=== PATIENT | female | born 1985 | race Caucasian/White ===

== ENCOUNTER → 2019-05-19 | Outpatient (CLI) | payer OTHER ==
[2019-05-19 10:10] LABS: African American GFR (CKD) >90 (>60 ml/min/1.73 sqM); Blood Urea Nitrogen 9 mg/dL (7-17)
[2019-05-19 11:24] LABS: Total Volume 24 Hour,Urine 1275 mls (800-1800)
[2019-05-19 11:51] LABS: Creatinine Clearance Urine 113 ml/min (70-135)
[2019-05-19 12:16] LABS: Total Protein 24 Hour,Urine 179 mg/24hr (42.0-225.0)
== END | disposition home or self-care (01) ==
LOC: LABWHC1 09:32
PROVIDERS: ATTEND Obstetrics & Gynecology
DX: O13.9 Gestational [pregnancy-induced] hypertension without significant proteinuria, unspecified trimester (principal)
CPT/HCPCS: 36415; 81050; 82565; 82575; 84156; 84520

== ENCOUNTER → 2021-02-07 | Outpatient (CLI) | payer OTHER ==
--- NOTE | 2021-02-07 09:35 | P.PAINCN ---
History of Present Illness - Reason for Consult Consult date: 02/07/21 - History of Present Illness This is a 35 years old female with a chronic history of severe headaches started more than 11 years ago, she denies any initiating event and she reported that the headache intensity to a with the quality of life, and occasional exacerbation of the headache, the headache associated with neck pain, she denies any aura, she denies any visual changes, and the symptoms radiate from the base of the skull, to the top of the head, she tried acupuncture, medication therapy, heat therapy, not any significant improvement, and she is currently on Topamax and Neurontin, with minimal benefit, she denies any motor or sensory deficit she denies any fever or night sweats Past Medical History Past Medical History: Asthma Additional Past Medical History / Comment(s): received both covid vaccines,uses inhaler when exercise induced asthma History of Any Multi-Drug Resistant Organisms: None Reported Past Surgical History: Section Additional Past Surgical History / Comment(s): c section x2 Past Anesthesia/Blood Transfusion Reactions: No Reported Reaction Smoking Status: Never smoker Past Alcohol Use History: Occasional Past Drug Use History: None Reported - Past Family History Mother Family Medical History: No Reported History Medications and Allergies Home Medications Medication Instructions Recorded Confirmed Type Cetirizine HCl [Zyrtec] 10 mg PO DAILY 02/04/21 02/04/21 History Enskyce Control 1 tab PO HS 02/04/21 02/04/21 History Fluticasone Nasal [place] [Flonase 2 spr EA NOSTRIL DAILY 02/04/21 02/04/21 History Nasal [place]] Gabapentin [Neurontin] 100 mg PO DAILY 02/04/21 02/04/21 History Rizatriptan Benzoate [Rizatriptan] 10 mg PO DAILY PRN 02/04/21 02/04/21 History Topiramate [Topamax] 100 mg PO BID 02/04/21 02/04/21 History Venlafaxine HCl [Effexor XR] 75 mg PO BID 02/04/21 02/04/21 History Allergies Allergy/AdvReac Type Severity Reaction Status Date / Time sulfamethoxazole Allergy Itching Verified 02/04/21 15:42 [From Bactrim] trimethoprim [From Bactrim] Allergy Itching Verified 02/04/21 15:42 Physical Exam Vitals: Vital Signs Temp Pulse Resp BP Pulse Ox 02/07/21 09:13 97.8 F 81 18 127/89 100 Physical Examinations : -Constitutiona : Cooperative , not in acute distress . -HEENT : nech : supple , no Lymphadenopathy , normal thyroid size . : eyes : no ptosis , no icterus, no photophobia . - neurologic : Cranial nerve II to XII intact , no focal neurological deffecit . -psychatric : alert , oriented X 3 , appropriate affect , intact judgment and insight . -Lymphatic : no Lymphadenopathy . - musculoskeltal : Cervical Spine motor stregnth in the deltoid and biceps, normal right side , normal Left side motor stregnth biceps and the wrist extensors normal right side ,normal left side . motor stregnth in the triceps muscle . normal Right side , normal Left side deep tendon reflexes normal at the biceps , normal at Brachioradialis , normal at triceps. cervical facet loading test: Positive Bilaterally Spurling test= negative bilaterally. Neck distraction test= negative bilaterally. Soha sign= negative bilaterally. Severe tenderness over the occipital nerves bilaterally Lumber spine moter stegnth lower extremities ,thigh and legs 5/5 Right side , 5/5 Left side Results Comments: MRI of the brain = reviewed Assessment and Plan Plan: Assessment and plan=1-bilateral occipital nerve neuralgia. 2-cervicogenic headache. 3-cervical spondylosis, cervical facet arthropathy without myelopathy. Patient could benefit from bilateral occipital nerve block , procedure risk and benefits and alternatives discussed with the patient and she agreed to the procedure, if she continues to have severe headache after the occipital nerve block then would consider doing medial branch block and third occipital nerve block , and possible RFA Time with Patient: Greater than 30 PQRS Measure Charge Sheet Measure #130: Documentation of Current Meds in Medical Chart: Patient's medications documented in chart Measure #226: Tobacco Use: Screen & Cessation Intervention: Pt not a tobacco user Measure #111: Pneumonia Vaccination: Pneumococcal vaccine NOT administered or previously given Measure #47: Advance Care Plan: Advance care planning discussed & documented, pt chose/unable to give Measure #412: Opioid Treatment Agreement: No documentation of signed opioid treatment agreement Measure #408: Opioid Therapy Follow-up Evaluation: Patient had NO f/u eval minimum every 3 months during opioid therapy Measure #317: Preventitive Care & Scrn High Bld Press & F/U: Normal blood pressure, f/u not required Measure #128: Body Mass Index (BMI) Screening & Follow-up: BMI documented within normal parameters Measure #131: Pain Assessment & Follow-up: Pain positive & plan documented, Follow-up scheduled Measure #431: Unhealthy Alcohol Use Preventative Care & Scrn: Patient not identified as an unhealthy alcohol user PQRS Narrative: Blood Pressure 127/89 Pain Intensity [Occipital] 8 Scale Used Numeric (1 - 10) Hx Alcohol Use (MH) Yes Home Medications: Ambulatory Orders Cetirizine HCl [Zyrtec] 10 mg PO DAILY 02/04/21 Enskyce Control 1 tab PO HS 02/04/21 Fluticasone Nasal [place] [Flonase Nasal [place]] 2 spr EA NOSTRIL DAILY 02/04/21 Gabapentin [Neurontin] 100 mg PO DAILY 02/04/21 Rizatriptan Benzoate [Rizatriptan] 10 mg PO DAILY PRN 02/04/21 Topiramate [Topamax] 100 mg PO BID 02/04/21 Venlafaxine HCl [Effexor XR] 75 mg PO BID 02/04/21
== END ==
CPT/HCPCS: 99211

== ENCOUNTER → 2021-03-02 | Outpatient (CLI) | payer OTHER ==
[2021-03-02 11:08] VITALS: BP 140/97; PULSE 71; RESP 16; TEMP 97.5
--- NOTE | 2021-03-02 11:19 | P.PAINPG ---
Subjective Progress Note Date: 03/02/21 - History of Present Illness This is a 35 years old female with a chronic history of severe headaches started more than 11 years ago, she denies any initiating event and she reported that the headache intensity to a with the quality of life, and occasional exacerbation of the headache, the headache associated with neck pain, she denies any aura, she denies any visual changes, and the symptoms radiate from the base of the skull, to the top of the head, she tried acupuncture, medication therapy, heat therapy, not any significant improvement, and she is currently on Topamax and Neurontin, with minimal benefit, she denies any motor or sensory deficit she denies any fever or night sweats. our plan last visit was to schedule for bilateral occipital nerve block, however she did not have this done yet. here for follow up today. Unfortunately her insurance denied occipital nerve blocks. Still located in the base of the neck with radiation into the vertex as well as the shoulders. Pain is described as dull and aching and worse with flexion and section of the cervical spine. DR Duque believes that her pain may be mediated from her cervical spine and ordered a cervical MRI, she has not gotten this yet. Physical Examinations : -Constitutiona : Cooperative , not in acute distress . -HEENT : nech : supple , no Lymphadenopathy , normal thyroid size . : eyes : no ptosis , no icterus, no photophobia . - neurologic : Cranial nerve II to XII intact , no focal neurological deffecit . -psychatric : alert , oriented X 3 , appropriate affect , intact judgment and insight . -Lymphatic : no Lymphadenopathy . - musculoskeltal : Cervical Spine motor stregnth in the deltoid and biceps, normal right side , normal Left side motor stregnth biceps and the wrist extensors normal right side ,normal left side . motor stregnth in the triceps muscle . normal Right side , normal Left side deep tendon reflexes normal at the biceps , normal at Brachioradialis , normal at triceps. cervical facet loading test: Positive Bilaterally Spurling test= negative bilaterally. Neck distraction test= negative bilaterally. Soha sign= negative bilaterally. Severe tenderness over the occipital nerves bilaterally Lumber spine moter stegnth lower extremities ,thigh and legs 5/5 Right side , 5/5 Left side Results Comments: MRI of the brain = reviewed Assessment and Plan Plan: Assessment and plan=1-bilateral occipital nerve neuralgia. 2-cervicogenic headache. 3-cervical spondylosis, cervical facet arthropathy without myelopathy. I do feel that her pain may be mediated from her cervical spine. Dr. Duque recently gave her a cervical MRI prescription which she has yet to get. She will get the cervical MRI, call back, and we will schedule medial branch blocks based on the results of this. Likely TON C3 C4, but I'd like to see her imaging prior to any injections. I explained the entire chronology of the procedure including the 2 medial branch blocks and possible radiofrequency ablation if she gets good relief and increase in functionality from the medial branch blocks. I have spent 31 minutes on patient care today. The time was used to review the medical records including relevant urine studies and prescription history, review of the available imaging, evaluation and examination of the patient, coordination of care with medical staff and if applicable referring physicians, as well as creation of the medical record. PQRS Measure Charge Sheet Measure #130: Documentation of Current Meds in Medical Chart: Patient's medications documented in chart Measure #226: Tobacco Use: Screen & Cessation Intervention: Pt not a tobacco user Measure #111: Pneumonia Vaccination: Pneumococcal vaccine NOT administered or previously given Measure #47: Advance Care Plan: Advance care planning discussed & documented, pt chose/unable to give Measure #412: Opioid Treatment Agreement: No documentation of signed opioid treatment agreement Measure #408: Opioid Therapy Follow-up Evaluation: Patient had NO f/u eval mini mum every 3 months during opioid therapy Measure #317: Preventitive Care & Scrn High Bld Press & F/U: Normal blood pressure, f/u not required Measure #128: Body Mass Index (BMI) Screening & Follow-up: BMI documented within normal parameters Measure #131: Pain Assessment & Follow-up: Pain positive & plan documented, Follow-up scheduled Measure #431: Unhealthy Alcohol Use Preventative Care & Scrn: Patient not identified as an unhealthy alcohol user PQRS Narrative: Objective - Vital Signs Vital signs: Intake & Output 02/28/21 03/01/21 03/01/21 18:59 06:59 18:59 Weight 61.235 kg PQRS Measure Charge Sheet PQRS Narrative: Pain Intensity [Head] 2 Hx Alcohol Use (MH) Yes: RARE Home Medications: Ambulatory Orders Cetirizine HCl [Zyrtec] 10 mg PO DAILY 02/04/21 Enskyce Control 1 tab PO HS 02/04/21 Fluticasone Nasal [place] [Flonase Nasal [place]] 2 spr EA NOSTRIL DAILY 02/04/21 Gabapentin [Neurontin] 100 mg PO HS 02/04/21 Rizatriptan Benzoate [Rizatriptan] 10 mg PO DAILY PRN 02/04/21 Topiramate [Topamax] 100 mg PO BID 02/04/21 Venlafaxine HCl [Effexor XR] 75 mg PO BID 02/04/21 Controlled Substance Measures - Controlled Substance Measures Is patient prescribed a controlled substance at discharge?: No
== END ==
LOC: PNWHC3 10:55
PROVIDERS: ATTEND Anesthesiology
DX: M54.81 Occipital neuralgia (principal); G44.89 Other headache syndrome; M47.812 Spondylosis without myelopathy or radiculopathy, cervical region
CPT/HCPCS: 99211

== ENCOUNTER → 2021-05-09 | Outpatient (CLI) | payer OTHER ==
[2021-05-09 12:36] VITALS: BP 143/93; PULSE 83; RESP 16; TEMP 98.4
--- NOTE | 2021-05-09 12:50 | P.PN ---
Subjective Progress Note Date: 05/09/21 This is Follow up visit for this 35 years old female with a chronic history of severe headaches started more than 11 years ago, she denies any initiating event and she reported that the headache intensity to a with the quality of life, and occasional exacerbation of the headache, the headache associated with neck pain, she denies any aura, she denies any visual changes, and the symptoms radiate from the base of the skull, to the top of the head, she tried acupuncture, medication therapy, heat therapy, not any significant improvement, and she is currently on Topamax and Neurontin, with minimal benefit, she denies any motor or sensory deficit she denies any fever or night sweats, specifically order MRI of the cervical spine which was rejected by her insurance, patient will be starting physical therapy tomorrow, patient also giving guidance instruction about doing instructed home exercise, patient already tried multiple medications to treat her headache Topamax 100 mg twice a day and Neurontin 100 mg daily at bedtime, Verapamil 40 mg daily at bedtime, she reported that the current medication is not helping enough she continued to have severe neck pain and headache . Objective - Vital Signs Vital signs: Vital Signs Temp 98.4 F 05/09/21 12:33 Pulse 83 05/09/21 12:33 Resp 16 05/09/21 12:33 BP 143/93 05/09/21 12:33 Pulse Ox 100 05/09/21 12:33 - Exam Physical Examinations : -Constitutiona : Cooperative , not in acute distress . -HEENT : nech : supple , no Lymphadenopathy , normal thyroid size . : eyes : no ptosis , no icterus, no photophobia . - neurologic : Cranial nerve II to XII intact , no focal neurological deffecit . -psychatric : alert , oriented X 3 , appropriate affect , intact judgment and insight . -Lymphatic : no Lymphadenopathy . - musculoskeltal : Cervical Spine motor stregnth in the deltoid and biceps, normal right side , normal Left side motor stregnth biceps and the wrist extensors normal right side ,normal left side . motor stregnth in the triceps muscle . normal Right side , normal Left side deep tendon reflexes normal at the biceps , normal at Brachioradialis , normal at triceps. cervical facet loading test: Positive Bilaterally Spurling test= negative bilaterally. Neck distraction test= negative bilaterally. Soha sign= negative bilaterally. Severe tenderness over the occipital nerves bilaterally Lumber spine moter stegnth lower extremities ,thigh and legs 5/5 Right side , 5/5 Left side Results MRI of the brain = reviewed Assessment and Plan Plan: Assessment and plan= 1-bilateral occipital nerve neuralgia. 2-cervicogenic headache. 3-cervical spondylosis, cervical facet arthropathy without myelopathy. The future we can schedule patient to have diagnostic medial branch block cervical area Bilat C2,C3 , third occipital nerve Time with Patient: Less than 30
== END ==
LOC: PNWHC3 12:17
PROVIDERS: ATTEND Specialist
DX: M54.81 Occipital neuralgia (principal); M47.812 Spondylosis without myelopathy or radiculopathy, cervical region; Z88.2 Allergy status to sulfonamides
CPT/HCPCS: 99211

== ENCOUNTER → 2021-07-27 | Outpatient (CLI) | payer OTHER ==
[2021-07-27 14:21] VITALS: BP 127/91; PULSE 82; RESP 18; TEMP 98.4
--- NOTE | 2021-07-27 15:07 | P.PAINPG ---
Subjective Progress Note Date: 07/27/21 Principal diagnosis: neck pain Ms. Santana is a 35-year-old pleasant female came to the [facility] pain clinic for follow-up visit. Patient has ongoing pain for many years. Patient describes pain is aching, throbbing, constant type of pain. Pain is not radiating. Patient rated pain levels are 8-9 out of 10 in severity. With the help of medications pain levels are 6-7out of 10 in severity. Activities making pain worse. Medications, resting , helping in relieving patient's pain. Patient pain some days better than others. Overall activities decreased secondary to pain. Because of the pain sometimes patient is feeling lack of sleep, interest, and energy. Denied any bowel or bladder problems at this time. Patient denied any suicidal ideas/homicidal ideas at this time. Patient denied any red flag symptoms related to pain. Objective - Vital Signs Vital signs: Vital Signs Temp 98.4 F 07/27/21 14:17 Pulse 82 07/27/21 14:17 Resp 18 07/27/21 14:17 BP 127/91 07/27/21 14:17 Pulse Ox 100 07/27/21 14:17 Intake & Output 07/26/21 07/27/21 07/27/21 18:59 06:59 18:59 Weight 64.41 kg - Exam General: Well-developed, well-nourished, no acute distress HEENT: Normocephalic, and atraumatic Neck: Supple, no neck swelling Psychiatric: Appropriate mood, and affect YARD OPERATOR: No focal neurological deficits Musculoskeletal: Upper extremity: Normal strength, and range of motion. Sensation grossly intact Lower extremity: Normal strength, and range of motion Cervical spine: Paravertebral tenderness: Positive Cervical spine facet hemalatha: Positive Cervical spine Spurling test: negative Assessment and Plan Assessment: cervical spondylosis without myelopathy Myofascial pain syndrome Plan: #1 Opioid, and psychological risk tools, and scores were reviewed. Diagnoses, prognosis, and multiple treatment options including but not limited to physical therapy, interventional therapy, adjunct medication therapy, narcotic me dication, and surgical options were discussed with the patient. And all questions were answered to the patient's satisfaction. #2 treatment plan agreement : Patient was thoroughly discussed regarding the treatment options, alternatives, and importance of exercises as tolerated. Patient clearly understood. #3 Patient was counseled on importance of regular exercise. Including rupa chi, aerobic exercises as tolerated. Which helps for chronic pain, and overall well- being. Patient also counseled regarding importance of weight control rolling chronic pain, and overall other health issues. By altering diet habits, minimizing sugar intake, and processed foods helps in minimizing Inflammation. Also discussed with the patient regarding intermittent fasting. Patient counseled regarding smoking associated with chronic pain, worsening inflammation, and smoking effects on liver, and medication metabolism. And encouraged to stop smoking. #4 investigations: MAPS- reviewed , urine drug test-not done #5 diagnostic tests:none #6 consultation : none # 7 interventional procedures: bilateral cervical C4-C5, and C5-C6 medial branch block 1. Procedure, complications, alternatives discussed with the patient. #8 medications #1 magnesium oxide 400 mg by mouth daily Medication side effects, complications, long-term consequences discussed with the patient. Patient recommended to contact the pain clinic if noticed any issues with given medications. #9 morphine milligrams equivalents dose ( MME) per day: 0 # 10 TENS unit's, and percussion massage device #11 disposition: scheduled to follow up with pain clinic i-n 4.-8 weeks duration. PQRS Measure Charge Sheet Measure #130: Documentation of Current Meds in Medical Chart: Patient's medications documented in chart Measure #226: Tobacco Use: Screen & Cessation Intervention: Pt not a tobacco user Measure #111: Pneumonia Vaccination: Pneumococcal vaccine NOT administered or previously given Measure #47: Advance Care Plan: Advance care planning discussed & documented, pt chose/unable to give Measure #412: Opioid Treatment Agreement: No documentation of signed opioid treatment agreement Measure #408: Opioid Therapy Follow-up Evaluation: Patient had NO f/u eval minimum every 3 months during opioid therapy Measure #317: Preventitive Care & Scrn High Bld Press & F/U: Normal blood pressure, f/u not required Measure #128: Body Mass Index (BMI) Screening & Follow-up: BMI documented within normal parameters Measure #131: Pain Assessment & Follow-up: Pain positive & plan documented Measure #431: Unhealthy Alcohol Use Preventative Care & Scrn: Patient not identified as an unhealthy alcohol user Mode of Arrival: Ambulatory - Pain Location Head Non-Pharmacological Interventions: Home Exercise, Physical Therapy, Position /Reposition, Stretching Pharmacological Interventions: Medication PQRS Narrative: Blood Pressure 127/91 Pain Intensity [Head] 5 Scale Used Numeric (1 - 10) Hx Alcohol Use (MH) Yes: RARE Home Medications: Ambulatory Orders Cetirizine HCl [Zyrtec] 10 mg PO DAILY 02/04/21 Enskyce Control 1 tab PO HS 02/04/21 Fluticasone Nasal [place] [Flonase Nasal [place]] 2 spr EA NOSTRIL DAILY 02/04/21 Gabapentin [Neurontin] 100 mg PO HS 02/04/21 Rizatriptan Benzoate [Rizatriptan] 10 mg PO DAILY PRN 02/04/21 Topiramate [Topamax] 100 mg PO BID 02/04/21 Venlafaxine HCl [Effexor XR] 75 mg PO BID 02/04/21 Multivitamins, Thera [Multivitamin (formulary)] 1 tab PO DAILY 05/06/21 Controlled Substance Measures - Controlled Substance Measures Is patient prescribed a controlled substance at discharge?: No
== END ==
LOC: PNWHC3 14:06
DX: M47.812 Spondylosis without myelopathy or radiculopathy, cervical region (principal); M79.18 Myalgia, other site; Z88.2 Allergy status to sulfonamides
CPT/HCPCS: 99211

== ENCOUNTER 2021-09-09 08:30 | Day surgery (SDC) | payer OTHER ==
[2021-09-07 15:52] VITALS: BMI 22.8
[~2021-09-09 08:30] MED LIST: LACTATED RINGERS 1,000 ML IV SCH
[2021-09-09 08:56] VITALS: TEMP 98
[2021-09-09] MEDS ORDERED: LIDOCAINE 1% (10MG/ML) FOR IV START INTRADERMA ONE (09:00)
[2021-09-09] MEDS ORDERED: ROPIVACAINE 5MG/ML 20ML VIAL ONE (09:20)
[2021-09-09] MEDS ORDERED: fentaNYL (PF) 50 MCG/ML 2 ML AMP ONE (09:20)
[2021-09-09] MEDS ORDERED: methylPREDNISolone ACETATE 40 MG/ML 1 ML VIAL ONE (09:20)
[2021-09-09] MEDS ORDERED: MIDAZOLAM 2 MG/2 ML VIAL ONE (09:20)
--- NOTE | 2021-09-09 09:43 | P.PCN ---
Date of Procedure: 09/09/21 Procedure(s) Performed: PREOPERATIVE DIAGNOSIS:1- Cervical Spondylosis with Facet Arthropathy.without myelopathy. 2-cervicogenic headache. 3-occipital neuralgia POSTOPERATIVE DIAGNOSIS: Same as preop diagnosis. PROCEDURES: Diagnostic bilateral C2 , C3, medial branch blocks, with fluo roscopic guidance (fluoroscopy images available in radiology department ) Diagnostic bilateral third occipital nerve block under fluoroscopy guidance ANESTHESIA: Monitored anesthesia care as per anesthesia department EBL: Minimal PROCEDURE INDICATION: The patient with neck pain and headache secondary to cervical arthropathy, and occipital neuralgia unresponsive to more conservative treatments. PROCEDURE DESCRIPTION / TECHNIQUE: The patient was seen and identified in the preoperative area. Risks, benefits, complications, and alternatives were discussed with the patient, the patient agreed to proceed with the procedure and signed the consent. IV was started. Vital signs remained stable throughout the procedure. Patient was taken to the OR and time out was completed. The patient was placed in the prone position on the procedure table. A pillow was placed under the patients chest to increase the cervical interlaminar space. The cervical area was prepped and draped in the usual sterile fashion. Critical pause was taken. Vital signs were closely monitored during the procedure. Conscious sedation was used during the procedure to decrease patients anxiety. Using cross-table lateral fluoroscopy, the centroid of the trapezoid of right C2 ,C3,was identified, marked, and localized with 1% lidocaine 1 ml at each level for skin and Sub Q infiltrations . Subsequently, a 25 G 2spinal needle was advanced guided by fluoroscopy to the centroid of the trapezoid of Right C2 , C3, [place] tip position was confirmed at the centroid of the trapezoids of Right C2 , C3 with anteroposterior fluoroscopy. Patient to do the right-sided third occipital nerve block and another needle was placed at the center of the facet joint between the C2 and C3 vertebral, needle placements confirmed with AP and lateral view, Subsequently, 1.5 ml of preservative-free Ropivacaine 0.5% mixed with Depo-Medrol 20 mg and half ml of the mixture was injected after negative aspiration for blood and CSF. [place] was then removed intact the same procedure was repeated at the left C2 , C3 , and the left third occipital nerve levels. COMPLICATIONS: No acute complications. DISPOSITION / PLANS: The patient was placed in a supine position and transferred to the recovery area in a stable condition for observation and was discharged from the recovery room after meeting discharge criteria. Home discharge instructions given to the patient by the staff. The patient was reexamined prior to discharge. The patient will schedule a follow up in the clinic in 2-4 weeks.
[2021-09-09] MEDS ORDERED: IV FLUID CONTINUATION 1,000 ML IV ONE (09:44)
[2021-09-09 10:00] VITALS: BP 123/85; PULSE 83; RESP 16
--- NOTE | 2021-09-09 10:21 | FL ---
EXAMINATION TYPE: FL guided pain mgmt statistic DATE OF EXAM: 09/09/2021 FLUOROSCOPY Fluoroscopy time of 20 seconds was used during needle placement for cervical spine pain intervention procedure. 4 image/s document/s the procedure.
== END 2021-09-09 10:20 | disposition home or self-care (01) ==
LOC: ORPAIN 08:30
PROVIDERS: ATTEND Specialist
DX: M47.812 Spondylosis without myelopathy or radiculopathy, cervical region (principal); M54.81 Occipital neuralgia
CPT/HCPCS: 64490; 64491; 81025; J2250; J1030; J3010; J2795

== ENCOUNTER → 2021-10-24 | Outpatient (CLI) | payer OTHER ==
--- NOTE | 2021-10-24 14:04 | P.PN ---
Subjective Progress Note Date: 10/24/21 This is Follow up visit for this 36 years old female with a chronic history of severe neck pain and headaches , recently we did diagnostic medial branch block cervical area at C2 , C3 , bilateral third occipital nerve block , he got excellent pain relief for a few weeks , and she is complaining of return of her symptoms , changes severe neck pain associated with severe headache ,and she report that the headache intensity to a with the quality of life, and occasional exacerbation of the headache, she denies any aura, and the symptoms radiate from the base of the skull, to the top of the head, she tried acupuncture, medication therapy, heat therapy, not any significant improvement, and she is currently on Topamax and Neurontin, with minimal benefit, she denies any motor or sensory deficit she denies any fever or night sweats, specifically order MRI of the cervical spine which was rejected by her insurance, patient will be starting physical therapy tomorrow, patient also giving guidance instruction about doing instructed home exercise, patient already tried multiple medications to treat he r headache Topamax 100 mg twice a day and Neurontin 100 mg daily at bedtime, Verapamil 40 mg daily at bedtime, she reported that the current medication is not helping enough she continued to have severe neck pain and headache . Physical Examinations : -Constitutiona : Cooperative , not in acute distress . -HEENT : nech : supple , no Lymphadenopathy , normal thyroid size . : eyes : no ptosis , no icterus, no photophobia . - neurologic : Cranial nerve II to XII intact , no focal neurological deffecit . -psychatric : alert , oriented X 3 , appropriate affect , intact judgment and insight . -Lymphatic : no Lymphadenopathy . - musculoskeltal : Cervical Spine motor stregnth in the deltoid and biceps, normal right side , normal Left side motor stregnth biceps and the wrist extensors normal right side ,normal left side . motor stregnth in the triceps muscle . normal Right side , normal Left side deep tendon reflexes normal at the biceps , normal at Brachioradialis , normal at triceps. cervical facet loading test: Positive Bilaterally Spurling test= negative bilaterally. Neck distraction test= negative bilaterally. Soha sign= negative bilaterally. Severe tenderness over the occipital nerves bilaterally Lumber spine moter stegnth lower extremities ,thigh and legs 5/5 Right side , 5/5 Left side Results MRI of the brain = reviewed Assessment and plan= 1-bilateral occipital nerve neuralgia. 2-cervicogenic headache. 3-cervical spondylosis, cervical facet arthropathy without myelopathy. She had excellent pain relief after diagnostic medial branch block cervical area Bilat C2,C3 , third occipital nerve x1 she will be good candidate to have repeat bilateral medial branch block cervical area at C2, C3, and bilateral third occipital nerve block Future Will consider RFA of the levels mentioned above Time with Patient: Less than 30
[2021-10-24 14:21] VITALS: BP 134/89; PULSE 91; RESP 18; TEMP 97.8
== END ==
LOC: PNWHC3 13:38
PROVIDERS: ATTEND Specialist
DX: M54.81 Occipital neuralgia (principal); G44.86 Cervicogenic headache; M47.812 Spondylosis without myelopathy or radiculopathy, cervical region; Z88.2 Allergy status to sulfonamides
CPT/HCPCS: 99211

== ENCOUNTER 2021-12-23 08:09 | Day surgery (SDC) | payer OTHER ==
[2021-12-22 09:46] VITALS: BMI 23.3
[~2021-12-23 08:09] MED LIST changes: +LIDOCAINE 1% (10MG/ML) FOR IV START INTRADERMA PRN
[2021-12-23 08:38] VITALS: TEMP 97.3
[2021-12-23] MEDS ORDERED: ROPIVACAINE 5MG/ML 20ML VIAL ONE (08:53)
[2021-12-23] MEDS ORDERED: fentaNYL (PF) 50 MCG/ML 2 ML AMP ONE (08:53)
[2021-12-23] MEDS ORDERED: MIDAZOLAM 2 MG/2 ML VIAL ONE (08:53)
[2021-12-23] MEDS ORDERED: methylPREDNISolone ACETATE 40 MG/ML 1 ML VIAL ONE (08:53)
--- NOTE | 2021-12-23 09:15 | P.PCN ---
Date of Procedure: 12/23/21 Procedure(s) Performed: PREOPERATIVE DIAGNOSIS:1- Cervical Spondylosis with Facet Arthropathy.without myelopathy. 2-cervicogenic headache. 3-occipital neuralgia POSTOPERATIVE DIAGNOSIS: Same as preop diagnosis. PROCEDURES: Diagnostic bilateral C2 , C3, medial branch blocks, with flu oroscopic guidance (fluoroscopy images available in radiology department ) Diagnostic bilateral third occipital nerve block under fluoroscopy guidance # 2nd ANESTHESIA: Monitored anesthesia care as per anesthesia department EBL: Minimal PROCEDURE INDICATION: The patient with neck pain and headache secondary to cervical arthropathy, and occipital neuralgia unresponsive to more conservative treatments. PROCEDURE DESCRIPTION / TECHNIQUE: The patient was seen and identified in the preoperative area. Risks, benefits, complications, and alternatives were di scussed with the patient, the patient agreed to proceed with the procedure and signed the consent. IV was started. Vital signs remained stable throughout the procedure. Patient was taken to the OR and time out was completed. The patient was placed in the prone position on the procedure table. A pillow was placed under the patients chest to increase the cervical interlaminar space. The cervical area was prepped and draped in the usual sterile fashion. Critical pause was taken. Vital signs were closely monitored during the procedure. Conscious sedation was used during the procedure to decrease patients anxiety. Using cross-table lateral fluoroscopy, the centroid of the trapezoid of right C2 ,C3,was identified, marked, and localized with 1% lidocaine 1 ml at each level for skin and Sub Q infiltrations . Subsequently, a 25 G 2spinal needle was advanced guided by fluoroscopy to the centroid of the trapezoid of Right C2 , C3, Exira tip position was confirmed at the centroid of the trapezoids of Right C2 , C3 with anteroposterior fluoroscopy. Patient to do the right-sided third occipital nerve block and another needle was placed at the center of the facet joint between the C2 and C3 vertebral, needle placements confirmed with AP and lateral view, Subsequently, 1.5 ml of preservative-free Ropivacaine 0.5% mixed with Depo-Medrol 20 mg and half ml of the mixture was injected after negative aspiration for blood and CSF. Exira was then removed intact the same procedure was repeated at the left C2 , C3 , and the left third occipital nerve levels. COMPLICATIONS: No acute complications. DISPOSITION / PLANS: The patient was placed in a supine position and transferred to the recovery area in a stable condition for observation and was discharged from the recovery room after meeting discharge criteria. Home discharge instructions given to the patient by the staff. The patient was reexamined prior to discharge. The patient will schedule a follow up in the clinic in 2-4 weeks.
[2021-12-23 09:55] VITALS: BP 126/88; PULSE 79; RESP 16
--- NOTE | 2021-12-23 09:58 | FL ---
Fluoroscopy HISTORY: Pain 6 seconds fluoroscopy time supplied to the referring clinician. 4 intraoperative C-arm images docume nt the procedure. See dictated report from anesthesia.
== END 2021-12-23 10:03 | disposition home or self-care (01) ==
LOC: ORPAIN 08:09
PROVIDERS: ATTEND Specialist
DX: M54.81 Occipital neuralgia (principal); M47.812 Spondylosis without myelopathy or radiculopathy, cervical region; G44.86 Cervicogenic headache; J45.909 Unspecified asthma, uncomplicated; G43.909 Migraine, unspecified, not intractable, without status migrainosus; F41.9 Anxiety disorder, unspecified; F32.A Depression, unspecified; Z88.2 Allergy status to sulfonamides; Z79.899 Other long term (current) drug therapy
CPT/HCPCS: 81025; 64450; 64490; J2250; J1030; J3010; J2795

== ENCOUNTER → 2022-01-09 | Outpatient (CLI) | payer OTHER ==
[2022-01-09 11:47] VITALS: BP 127/89; PULSE 76; RESP 18; TEMP 98
--- NOTE | 2022-01-09 12:48 | P.PN ---
Subjective Progress Note Date: 01/09/22 Principal diagnosis: A 36 yr old female with a history of severe and chronic neck, head and eye pain presents today for evaluation status post nerve block of the C2-C3 and third occipital nerve. Patient states she expressed 100% pain relief for several weeks now status post procedure. Pain level is currently at 0 out of 10 in intensity. Denies radiation of pain. No provocation factors currently. Pain is alleviated with medications, injections, heat, use of an that a pot, physical therapy last summer 2020, yoga, home exercise stretching regimen, use of peppermint oil, sitting in a dark room avoiding the lights and rest. Interventional pain procedures completed include C2-C3 and 3rd O.N. Patient is currently on Topamax, Maxalt Patient denies any side effects of the medication(s), denies excessive drowsiness or sleepiness, denies suicidal ideation and reports that the current pain medication is helping to control the pain and improve activities of daily living. Patient denies any motor or sensory deficits. Patient denies any fever or night sweats, denies any change in the bowel movements or urination. Physical Examination: -Constitutional: Cooperative. Not in acute distress . -HEENT: Neck is supple. No lymphadenopathy. No thyromegaly. Normal thyroid size. Eyes: No ptosis , no icterus, no photophobia. ENT: No auditory deficits. Normal oropharynx. No Thrush. - Respiratory: Chest clear to auscultations bilaterally. No wheezing. No rhonchi. - Cardiovascular: Regular rate and rhythm. S1 / S2 , no S3 , no S4. - Gastrointestinal: Abdomen soft no tenderness. Bowel sounds positive in all four quadrants. No organomegaly. - Genitourinary: Deferred. - Neurologic: Cranial nerve II to XII intact. No focal neurological deficits. - Psychatric: Alert & oriented x 3. Matching mood & appropriate affect. Ju dgment and insight intact. - Lymphatic: No Lymphadenopathy. - Musculoskeletal: Cervical spine: Muscle bulk/ tone/ strength in the bilateral upper extremities normal. Facet loading test cervical area positive. Lumbar spine: Motor bulk/ tone/ strength lower extremities , thigh and legs : 5/5 Deep tendon reflexes : Normal Knee Jerk. Normal Ankle Jerk . Vertebral body tenderness to palpation over Lumbar Facet Loading Test positive Straight Leg Raise: positive at 30 degrees right side/ left side Gaenslen's Test positive Sacral spine : Severe tenderness over the Sacroiliac joint: right side / left side Range of motion: Flexion of the lumbar spine <60 degrees Range of motion: Extension of the lumbar spine <20 degrees Gaenslen's Test positive Christi test: positive right side / left side Assessment and plan: Chronic neck, head and eye pain. Occipital Neuralgia. Is not interested in RFA at this time as she's had substantial pain relief with prior treatment. Will return to our clinic on an as needed basis. All patient questions answered MAPS reviewed and it was appropriate. I have spent 31 minutes on patient care today. Dr Reed was available by phone for the evaluation of this patient. The time was used to review the [facility] records including relevant urine studies and Prescription history (MAPs), review of the available imaging, evaluation and examination of the patient, coordination of care with the medical staff and if applicable referring physicians, as well as creation of the medical record Objective - Vital Signs Vital signs: Vital Signs Temp 98.0 F 01/09/22 11:41 Pulse 76 01/09/22 11:41 Resp 18 01/09/22 11:41 BP 127/89 01/09/22 11:41 Pulse Ox 97 01/09/22 11:41 PQRS Measure Charge Sheet Mode of Arrival: Ambulatory PQRS Narrative: Blood Pressure 127/89 Scale Used Numeric (1 - 10) Hx Alcohol Use (MH) Yes: RARE Home Medications: Ambulatory Orders Enskyce Control 1 tab PO HS 02/04/21 Fluticasone Nasal [place] [Flonase Nasal [place]] 2 spr EA NOSTRIL DAILY 02/04/21 Rizatriptan Benzoate [Rizatriptan] 10 mg PO DAILY PRN 02/04/21 Topiramate [Topamax] 100 mg PO BID 02/04/21 Venlafaxine HCl [Effexor XR] 75 mg PO BID 02/04/21 Cetirizine HCl [Zyrtec] 10 mg PO DAILY 10/20/21 Gabapentin [Neurontin] 100 mg PO DAILY 12/22/21
== END ==
LOC: PNWHC3 11:09
PROVIDERS: ATTEND Physician Assistant Medical
DX: M54.81 Occipital neuralgia (principal); G89.29 Other chronic pain; Z88.2 Allergy status to sulfonamides
CPT/HCPCS: 99211

== ENCOUNTER → 2022-01-20 | Outpatient (CLI) | payer OTHER ==
--- NOTE | 2022-01-20 09:50 | CT ---
EXAMINATION TYPE: CT sinus wo con DATE OF EXAM: 01/20/2022 COMPARISON: None HISTORY: Chronic sinusitis. CT DLP: 602 mGycm. Automated Exposure Control for Dose Reduction was Utilized. TECHNIQUE: CT scan of the sinuses is performed without contrast, axial images are obtained, coronal r eformatted images are also reviewed. FINDINGS: There is moderate mucosal thickening involving the left maxillary sinus with occlusion of t he ostiomeatal complex. Right maxillary sinus is clear. Ostiomeatal complex on the right patent. Frontal, ethmoidal and sphenoidal sinuses demonstrate no significant evidence of sinusitis. There is evidence of a nasal septal deviation. Visualized portion of mastoid air cells show no abnormal opacif ication. The globes are intact bilaterally. IMPRESSION: 1. Moderate chronic left maxillary sinusitis with occlusion of the ostiomeatal complex.- 2. Nasal septal deviation.
== END | disposition home or self-care (01) ==
LOC: RADCTMAIN 09:23
PROVIDERS: ATTEND Otolaryngology
DX: J32.0 Chronic maxillary sinusitis (principal); J34.2 Deviated nasal septum
CPT/HCPCS: 70486

== ENCOUNTER 2022-02-17 13:16 | Day surgery (SDC) | payer OTHER ==
[2022-02-16 08:59] VITALS: BMI 23.3
[2022-02-17 13:40] VITALS: RESP 18; TEMP 97.4
[2022-02-17] MEDS ORDERED: fentaNYL (PF) 50 MCG/ML 2 ML AMP ONE (13:56)
[2022-02-17] MEDS ORDERED: MIDAZOLAM 2 MG/2 ML VIAL ONE (13:56)
[2022-02-17] MEDS ORDERED: DEXAMETHASONE SOD PHOSPHATE 10 MG/ML 1 ML VIAL ONE (13:56)
[2022-02-17] MEDS ORDERED: ROPIVACAINE 5MG/ML 20ML VIAL ONE (13:56)
--- NOTE | 2022-02-17 14:26 | P.PCN ---
Date of Procedure: 02/17/22 Procedure(s) Performed: PREOPERATIVE DIAGNOSIS:1- Cervical Spondylosis with Facet Arthropathy.without myelopathy. 2-cervicogenic headache. 3-occipital neuralgia POSTOPERATIVE DIAGNOSIS: Same as preop diagnosis. PROCEDURES: Radio frequency thermocoagulation bilateral C2 , C3, medial branch blocks, with fluoroscopic guidance (fluoroscopy images available in radiology department ) Radiofrequency thermocoagulation bilateral third occipital nerve block under fluoroscopy guidance. ANESTHESIA: Monitored anesthesia care as per anesthesia department EBL: Minimal PROCEDURE INDICATION: The patient with neck pain secondary to cervical a rthropathy who had more than 50% relief of her pain with previous diagnostic cervical medial branch block. PROCEDURE DESCRIPTION / TECHNIQUE: The patient was seen and identified in the preoperative area. Risks, benefits, complications, and alternatives were discussed with the patient, the patient agreed to proceed with the procedure and signed the consent. IV was started. Vital signs remained stable throughout the procedure. Patient was taken to the OR and time out was completed. The patient was placed in the prone position on the procedure table. A pillow was placed under the patients chest to increase the cervical interlaminar space. The cervical area was prepped and draped in the usual sterile fashion. Critical pause was taken. Vital signs were closely monitored during the procedure. Conscious sedation was used during the procedure to decrease patients anxiety. Using cross-table lateral fluoroscopy, the centroid of the trapezoid of Right C2 C3, were identified, marked, and localized with 1% lidocaine. Subsequently, a 20 [id number] radiofrequency cannula with a 10-mm active tip was advanced guided by fluoroscopy to the centroid of the trapezoid of Right C2 , C3, and for the right third occipital nerve another Radiofrequency needle placed at the center of the facet joints between the C2 and C3 vertebra, then Needle tip position was confirmed at the centroid of the trapezoids of Right C2 ,C3, with anteroposterior fluoroscopy. Each site then underwent sensory testing at 50 Hz and 0 to 1 volt and motor testing at 2 Hz and 0 to 3 volt with local stimulation, but no radicular symptoms down the arm. Thereafter each sites underwent radiofrequency thermocoagulation at 80 degrees celsius for 90 seconds after injecting 0.5 ml of PF Ropivacaine 0.5 %. After thermocoagulation, 1 ml of the block solution containing Dexamethasone 10 mg and 3 mL of preservative-free normal saline was injected at the right C2 ,C3, and right 3rd occipital nerve levels after negative aspiration of CSF and blood and with no paresthesias. Cannulas were retracted while injecting lidocaine 1% until the needle is out. In the exact same procedure was done on the left side and I did the radiofrequency thermocoagulation of the left side C2 , C3 medial branch on the left side third occipital nerve , then at the end of the procedure the Skin was cleansed and bandages were applied. COMPLICATIONS: No acute complications. DISPOSITION / PLANS: The patient was placed in a supine position and transferred to the recovery area in a stable condition for observation and was discharged from the recovery room after meeting discharge criteria. Home discharge instructions given to the patient by the staff. The patient was reexamined prior to discharge. The patient will schedule a follow up in the clinic in 2-4 weeks.
[2022-02-17] MEDS ORDERED: IV FLUID CONTINUATION 1,000 ML IV ONE (14:29)
[2022-02-17 14:48] VITALS: BP 127/84; PULSE 85
--- NOTE | 2022-02-17 15:18 | FL ---
Fluoroscopy HISTORY: Pain 8 seconds fluoroscopy time supplied to the referring clinician. 5 intraoperative C-arm images docume nt the procedure. See dictated report from anesthesia.
== END 2022-02-17 15:01 | disposition home or self-care (01) ==
LOC: ORPAIN 13:16
PROVIDERS: ATTEND Specialist
DX: M54.81 Occipital neuralgia (principal); G44.86 Cervicogenic headache; M47.812 Spondylosis without myelopathy or radiculopathy, cervical region; J45.909 Unspecified asthma, uncomplicated; Z88.2 Allergy status to sulfonamides; Z79.899 Other long term (current) drug therapy
CPT/HCPCS: 81025; 64633; J2250; J1100; J3010; J2795

== ENCOUNTER → 2022-03-13 | Outpatient (CLI) | payer OTHER ==
--- NOTE | 2022-03-13 09:29 | P.PN ---
Subjective Progress Note Date: 03/13/22 Principal diagnosis: A 36 yr old female with a history of severe and chronic neck pain secondary to cervical degenerative disc diseases and spondylosis with facet arthropathy presents today for evaluatin s/p RFA of C2-C3 and 3rd Occipital Nerve. Pt states she experienced 95% pain relief s/p procedure. Pain level is currently at 0/10 in intensity but she still has slight muscle cramping in the upper aspect of her cervical spine. Pain is provoked by extension. Pain is alleviated with injections, massage, heat, stretching and repositioning. She is following up with a new neurologist because she thinks her headaches may be sinus related. Interventional pain procedures completed include RFA C2-C3 & 3rd O.N. Patient denies any side effects of the medication(s), denies excessive drowsiness or sleepiness, denies suicidal ideation and reports that the current pain medication is helping to control the pain and improve activities of daily living. Patient denies any motor or sensory deficits. Patient denies any fever or night sweats, denies any change in the bowel movements or urination. Physical Examination: -Constitutional: Cooperative. Not in acute distress . -HEENT: Neck is supple. No lymphadenopathy. No thyromegaly. Normal thyroid size. Eyes: No ptosis , no icterus, no photophobia. ENT: No auditory deficits. Normal oropharynx. No Thrush. - Respiratory: Chest clear to auscultations bilaterally. No wheezing. No rhonchi. - Cardiovascular: Regular rate and rhythm. S1 / S2 , no S3 , no S4. - Gastrointestinal: Abdomen soft no tenderness. Bowel sounds positive in all four quadrants. No organomegaly. - Genitourinary: Deferred. - Neurologic: Cranial nerve II to XII intact. No focal neurological deficits. - Psychatric: Alert & oriented x 3. Matching mood & appropriate affect. Judgment and insight intact. - Lymphatic: No Lymphadenopathy. - Musculoskeletal: Cervical spine: Muscle bulk/ tone/ strength in the bilateral upper extremities normal. Facet loading test cervical area positive. Lumbar spine: Motor bulk/ tone/ strength lower extremities , thigh and legs : 5/5 Deep tendon reflexes : Normal Knee Jerk. Normal Ankle Jerk . Vertebral body tenderness to palpation over Lumbar Facet Loading Test positive Straight Leg Raise: positive at 30 degrees right side/ left side Gaenslen's Test positive Sacral spine : Severe tenderness over the Sacroiliac joint: right side / left side Range of motion: Flexion of the lumbar spine <60 degrees Range of motion: Extension of the lumbar spine <20 degrees Gaenslen's Test positive Christi test: positive right side / left side Assessment and plan: Chronic neck pain secondary to cervical degenerative disc disease , spondylosis with facet arthropathy without myelopathy Pt experienced sufficient and optimal pain relief s/p procedure. Discussed prognoses. She may return to our clinic on an as-needed basis. All patient questions answered MAPS reviewed and it was appropriate. I have spent 31 minutes on patient care today. Dr Reed was available by phone for the evaluation of this patient. The time was used to review the medical records including relevant urine studies and Prescription history (MAPs), review of the available imaging, evaluation and examination of the patient, coordination of care with the medical staff and if applicable referring physicians, as well as creation of the medical record PQRS Measure Charge Sheet PQRS Narrative: Hx Alcohol Use (MH) Yes: RARE Home Medications: Ambulatory Orders Enskyce Control 1 tab PO HS 02/04/21 Fluticasone Nasal [place] [Flonase Nasal [place]] 2 spr EA NOSTRIL DAILY 02/04/21 Rizatriptan Benzoate [Rizatriptan] 10 mg PO DAILY PRN 02/04/21 Topiramate [Topamax] 100 mg PO DAILY 02/04/21 Venlafaxine HCl [Effexor XR] 75 mg PO BID 02/04/21 Cetirizine HCl [Zyrtec] 10 mg PO DAILY 10/20/21 Singulair(Dose Unknown) 10 mg PO HS 02/16/22
[2022-03-13 09:30] VITALS: BP 133/86; PULSE 85; RESP 16
== END ==
LOC: PNWHC3 09:06
PROVIDERS: ATTEND Specialist
DX: M50.30 Other cervical disc degeneration, unspecified cervical region (principal); M47.812 Spondylosis without myelopathy or radiculopathy, cervical region; G89.29 Other chronic pain; Z88.2 Allergy status to sulfonamides
CPT/HCPCS: 99211

== ENCOUNTER → 2023-06-25 | Outpatient (CLI) | payer OTHER ==
[2023-06-25 15:44] LABS: Basophils # (A) 0.04 X 10*3/uL (0.00-0.10); Basophils % (A) 0.6 %; Eosinophils # (A) 0.16 X 10*3/uL (0.04-0.35); Eosinophils % (A) 2.3 %; HCT 43.6 % (37.2-46.3); Lymphocytes # (A) 2.59 X 10*3/uL (0.90-5.00); Lymphocytes % (A) 37.8 %; MCH 31.1 pg (27.0-32.0); MCHC 34.4 d/dL (32.0-37.0); MCV 90.3 FL (80.0-97.0); Mean Platelet Volume 10.6 FL (9.5-12.2); Monocytes # (A) 0.37 X 10*3/uL (0.20-1.00); Monocytes % (A) 5.4 %; NRBC Per 100 WBC 0 X 10*3/uL (0.00-0.01); Neutrophils # (A) 3.67 X 10*3/uL (1.80-7.70); Neutrophils % (A) 53.6 %; Platelet Count 246 X 10*3/uL (140-440); RBC 4.83 X 10*6/uL (4.10-5.20); RDW 12.3 % (11.5-14.5); WBC 6.85 X 10*3/uL (4.50-10.00)
[2023-06-25 15:57] LABS: Testosterone <10.00 ng/dL (9.01-47.94)
[2023-06-25 16:01] LABS: Follicle Stimulating Hormone 6.5 mIU/mL
== END | disposition home or self-care (01) ==
LOC: LABWHC1 10:44
PROVIDERS: ATTEND Obstetrics & Gynecology
DX: R68.82 Decreased libido (principal)
CPT/HCPCS: 36415; 83001; 83002; 84144; 84403; 84443; 85025